=== PATIENT | male | born 1935 | race Caucasian/White ===

== ENCOUNTER 2019-03-11 16:39 | Observation (INO) ==
[2019-03-11 18:28] LABS: BASO# 0.09 X1000 (0.0-0.2); BASO% 1.1 % (0.0-0.8); EOS# 1.26 X1000 (0.0-0.7); EOS% 15.6 % (0.0-10.0); HEMOGLOBIN 10.2 g/dL (14.0-18.0); IMM GRAN# 0.01 X1000 (0.0-0.04); IMM GRAN% 0.1 % (0.0-0.5); LYMPH# 1.45 X1000 (1.2-3.4); MCH 31.7 PG (27-31); MCV 93.2 FL (81-99); MONO# 1.03 X1000 (0.11-0.59); MONO% 12.8 % (1.7-9.3); MPV 8.7 FL (7.4-10.4); NEUT# 4.22 X1000 (1.4-6.5); NEUT% 52.4 % (42.2-75.2); PLT 318 X1000 (130-400); RBC 3.22 XMIL (4.7-6.1); RDW 12.2 % (11.5-14.5); WBC 8.06 X1000 (4.8-10.8)
[2019-03-11 18:49] LABS: INR 0.93; PROTIME 12.9 Seconds (11.0-16.0)
--- NOTE | 2019-03-11 18:51 | Diag Imaging Result Doc PS360 ---
EXAM: CT HEAD W/O CONTRAST HISTORY: AMS,GAIT DISTURB TECHNIQUE: CT head without contrast COMPARISON: 01/02/2019 FINDINGS: No parenchymal hemorrhage. No epidural or subdural hematoma. No subarachnoid hemorrhage. There is atrophy with chronic microvascular ischemic changes. 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 No mass identified on this noncontrasted exam. No hydrocephalus. Prominent mucus in the ethmoid, sphenoid, and left frontal sinuses. IMPRESSION: 1.No hemorrhage 2.Chronic microvascular ischemic changes with small old right infarct 3.Sinusitis This exam was performed using automated exposure control, adjustment of mA or kV according to patient size, and/or use of iterative reconstruction technique. Electronically signed by Jon Sung 03/11/2019 6:49 PM
--- NOTE | 2019-03-11 18:51 | EKG Report ---
Test Performed on : 03/11/2019 6:06:19 PM Test Reason : AMS,GAIT DISTURB Blood Pressure : / mmHG Vent. Rate : 060 BPM Atrial Rate : 060 BPM P-R Int : 200 ms QRS Dur : 116 ms QT Int : 454 ms P-R-T Axes : 015 -12 054 degrees QTc Int : 454 ms Sinus rhythm. with premature atrial complexes. with aberrant conduction. Left ventricular hypertrophy with QRS widening Abnormal ECG When compared with ECG of 18-SEP-2018 10:55, premature ventricular complexes. are no longer present aberrant conduction. is now present ST no longer elevated in Lateral leads Nonspecific T wave abnormality no longer evident in Inferior leads Unconfirmed Result
[2019-03-11 18:56] LABS: UR AMPHETAMINES QUAL NONE DETECTED (NONE DETECT); UR BARBITUATES QUAL NONE DETECTED (NONE DETECT); UR BENZODIAZEPIN QUAL NONE DETECTED (NONE DETECT); UR CANNABINOIDS QUAL NONE DETECTED (NONE DETECT); UR COCAINE QUAL NONE DETECTED (NONE DETECT); UR METHADONE QUAL NONE DETECTED (NONE DETECT); UR METHAMPHETAMINE QUAL NONE DETECTED (NONE DETECT); UR OPIATES QUAL NONE DETECTED (NONE DETECT); UR OXYCODONE QUAL NONE DETECTED (NONE DETECT); UR PCP QUAL NONE DETECTED (NONE DETECT); UR PROPOXYPHENE QUAL NONE DETECTED (NONE DETECT); UR TCA QUAL NONE DETECTED (NONE DETECT)
[2019-03-11 19:00] LABS: CREATININE 1.9 mg/dL (0.7-1.2); POTASSIUM 4.2 mmol/L (3.5-5.1)
[2019-03-11 19:01] LABS: ALBUMIN 4.2 g/dL (3.5-5.0); CALCIUM 9.1 mg/dL (8.8-10.2); TOTAL BILIRUBIN 0.2 mg/dL (0.20-1.00); TOTAL PROTEIN 7.1 g/dL (6.3-8.3)
--- NOTE | 2019-03-11 19:02 | Diag Imaging Result Doc PS360 ---
EXAM: CHEST-PORTABLE HISTORY: AMS,GAIT DISTURB TECHNIQUE: Chest single view COMPARISON: 12/29/2018 FINDINGS: The lungs are well expanded. The heart is mildly prominent. The vessels are not distended. There are no infiltrates. No effusion identified. IMPRESSION: Mild cardiomegaly Electronically signed by Jon Sung 03/11/2019 7:00 PM
[2019-03-11 19:09] LABS: BILIRUBIN URINE NEGATIVE (NEGATIVE); BLOOD URINE 1+ (NEGATIVE); CLARITY CLEAR (CLEAR); COLOR YELLOW; GLUCOSE URINE NEGATIVE (NEGATIVE); KETONE URINE NEGATIVE (NEGATIVE); LEUKOCYTES URINE 1+ (NEGATIVE); NITRITE URINE NEGATIVE (NEGATIVE); PROTEIN URINE NEGATIVE (NEGATIVE); SP GRAVITY URINE 1.005; UROBILINOGEN URINE NORMAL
[2019-03-11 19:18] LABS: URINE SOURCE CATH
[2019-03-11 19:25] LABS: URINE BACTERIA NEGATIVE /HFP; URINE CAST NONE SEEN /LPF; URINE CRYSTAL NONE SEEN /HPF; URINE EPITHELIAL CELLS <10 /HPF (<10); URINE RBC <10 /HPF (<10); URINE WBC <10 /HPF (<10); URINE YEAST NONE SEEN /HPF
[2019-03-11] MEDS ORDERED: NS 1,000 ML IV ONE (21:20)
[2019-03-11 22:04] LABS: BE 3.6 mmoll (-3.0-3.0); BLOOD TYPE ARTERIAL; HCO3-(ACT) 27.7 mmoll (20.0-26.0); METHB 1.1 % (0.0-1.5); O2(CT) 14.5 mL/dL (15.0-23.0); O2HB 95.6 % (95.0-99.0); PCO2(98.6) 39 mmHg (35-45); PO2(98.6) 88 mmHg (60-100); SAMPLE BLOOD; SAO2 98.5 % (95.0-100.0); THB 10.7 g/dL (11.5-17.4); pH(98.6) 7.46 (7.35-7.45)
[2019-03-11 22:06] LABS: ALLEN TEST NO; MODALITY CANNULA
--- NOTE | 2019-03-12 10:01 | HISTORY AND PHYSICAL ---
PRIMARY CARE PHYSICIAN: Dr. Lebron. CHIEF COMPLAINT: Per caregiver at intermediate, patient's blood pressure was elevated, having some new balance issues, and new left-sided facial droop, is nonverbal and on 3 L of O2 at home due to his COPD. HISTORY OF PRESENTING ILLNESS: This is an 83-year-old male who presents to [facility] ER with caregiver from the [facility] intermediate stating that the patient's blood pressure had been elevated, was having some new balance issues, and new left-sided facial droop. The patient is mostly nonverbal, but will respond yes or no to pain. He has a history of COPD and is on 3 L of O2 at home. He has MR. His workup in the emergency room showed a blood pressure of 177/84 on arrival, and was saturating 100% on 3 L of O2. His laboratory data showed a sodium of 130. Urinalysis was negative. Urine drug screen was negative. We did a CT of the head that showed no hemorrhage. 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 PAST MEDICAL HISTORY: Mental retardation, chronic kidney disease stage 3 to 4, hypertension, hyperlipidemia, hypothyroidism, iron deficiency anemia, GERD and systolic heart failure. PAST SURGICAL HISTORY: Unknown. FAMILY HISTORY: Reviewed and noncontributory. SOCIAL HISTORY: Currently lives in a intermediate with a VOA in [place], [place]. Denies any tobacco, alcohol or illicit drug use. ALLERGIES: Tuberculin. HOME MEDICATIONS: We will need to obtain a current list, reconcile, review, and restart as appropriate. Placed an order for nursing to update and confirm her home medications. LABORATORY DATA: Showed a white blood cell count of 8.06, hemoglobin 10.2, hematocrit 30, and platelets 318,000. PT and INR of 12.9 and 0.93. ABG showed a pH of 7.46, pCO2 of 39, PO2 88, bicarb 27.7, and this was on 3 L via nasal cannula. Sodium 130, potassium 4.2, chloride 91, CO2 26, BUN of 25, creatinine 1.9, and glucose 86. Troponin was negative. ProBNP of 5874. Plasma lactate of 0.7. Urinalysis was negative. Urine drug screen showed none detected. Chest x-ray showed mild cardiomegaly. Head CT showed no hemorrhage. Chronic microvascular ischemic changes with a small old right infarct and sinusitis. EKG showed sinus rhythm with PACs with aberrant conduction at 60. REVIEW OF SYSTEMS: Unable to obtain from patient, but according to the caregiver, on arrival, he was having the increased blood pressure, balance issues while standing, and new left-sided facial droop. PHYSICAL EXAMINATION: VITAL SIGNS: On arrival, he had a temperature of 97.6 degrees, pulse 63, respirations 19, blood pressure 177/84 and saturating 100% on 3 L via nasal cannula. GENERAL: This is an 83-year-old male who is lying in the bed unable to answer questions because he is primarily nonverbal. Information has been obtained from previous ER record. HEENT: Normocephalic and atraumatic. Normal ENT inspection. Oropharynx and nares are clear. EYES: Pupils are equal, round, and reactive to light and accommodation. Extraocular movements are intact. NECK: Normal inspection. Normal range of motion. LUNGS: Clear to auscultation bilaterally with equal lung expansion and chest wall movement. HEART: Regular rate and rhythm. No murmurs, rubs, or gallops. ABDOMEN: Soft, nontender, and nondistended. Bowel sounds are present x4 quadrants. MUSCULOSKELETAL: Severe leg weakness. NEUROLOGIC: Limited neuro exam due to patient being uncooperative. Neurological unable to obtain as patient unable to participate in neurological exam. ASSESSMENT: 1. Hyponatremia. 2. Altered mental status. 3. Generalized weakness with inability to stand. 4. Chronic kidney disease stage 3 to 4. 5. Mental retardation. PLAN: He has been admitted to the medical unit doing neuro checks q.4 hours for 24 hours. Telemetry. Placed on a healthy heart diet. Blood cultures x2, and a urine culture are pending. We will continue normal saline at 100 mL an hour. We will recheck a BMP this morning. Again, we will have nursing to update and confirm home medication so that they can be restarted. We will consult physical therapy, and further orders after seen by attending. Dictated by MAMIE Dickinson for Benson Willis MD Addendum: Patient seen and examined by myself. Agree with MAMIE note. It reflects my assessment and plan. Patient is being admitted to hospital for mild hyponatremia and altered mental status. There is no members of intermediate to provide more information. Clinically he looks stable and labs are better, he is awake now but non verbal. If he continues to be like this will discharge him tomorrow. His creatinine is at his historical baseline. cc: MAMIE Dickinson MD Hiteshri S. Bhavsar, MD [facility]
[2019-03-12 11:14] LABS: CALCIUM 8.7 mg/dL (8.8-10.2); CREATININE 1.8 mg/dL (0.7-1.2); POTASSIUM 4.1 mmol/L (3.5-5.1)
[2019-03-13 11:15] VITALS: BP 149/44
--- NOTE | 2019-03-14 21:52 | DISCHARGE SUMMARY ---
ADMISSION DATE: 03/12/2019 DISCHARGE DATE: 03/13/2019 PRIMARY CARE PHYSICIAN: Dr. Lebron. ADMISSION DIAGNOSES: 1. Hyponatremia. 2. Altered mental status. 3. Generalized weakness with inability to stand. 4. Chronic kidney disease stage III to IV. 5. Mental retardation. DISCHARGE DIAGNOSES: 1. Hyponatremia, improved. 2. Altered mental status, improved. 3. Generalized weakness. 4. Chronic kidney disease stage III to IV, improved. 5. Mental retardation. SUMMARY OF FINDINGS: This is an 83-year-old male who presents to the emergency room from the [facility] stating the patient's blood pressure had been elevated and he was having some new balance issues and a new left-sided facial droop. The patient was mostly nonverbal, but would respond yes or no to pain. Uses O2 at 3 L via nasal cannula continuously at home due to his COPD. When he arrived he was noted to have a sodium of 130. His creatinine was 1.9. We did a CT of his head that showed no hemorrhage and chronic microvascular ischemic changes with a small old right infarct. We gave him IV hydration. Physical therapy was consulted and felt that he was a poor rehab candidate, but felt that he would need a walker to walk and would need to improve on his sitting balance and [id number] transfers due to his decreased bed mobility, decreased balance, and reduced strength, but it was felt that he could safely go to rehab facility. DISCHARGE MEDICATIONS: His discharge medications include Tylenol 1000 mg p.o. q. 6 hours p.r.n., aspirin 81 mg p.o. daily, Polysporin ointment topically b.i.d., Cogentin 0.5 mg p.o. at bedtime, Symbicort 160/4.5 mcg inhaler 2 puffs p.o. b.i.d., vitamin D3 at 1000 units p.o. daily, vitamin B12 at 1000 mcg p.o. daily, Colace 100 mg p.o. daily, doxycycline 100 mg p.o. b.i.d., fenofibrate 48 mg p.o. at bedtime, Prozac 20 mg p.o. daily, Lasix 40 mg p.o. p.r.n. and 20 mg p.o. daily, Icar C p.o. daily, Nizoral 2% shampoo topically as directed, lactulose 10 g per 15 mL p.o. daily, Synthroid 75 mcg p.o. daily, loperamide 4 mg p.o. daily p.r.n., Toprol-XL 25 mg p.o. daily, triple antibiotic ointment topically 2 to 4 times daily p.r.n., omeprazole 20 mg p.o. daily, MiraLAX 17 g p.o. daily, Zantac 150 mg p.o. q.a.m., risperidone 0.25 mg p.o. at bedtime, tamsulosin 0.4 mg p.o. daily, Lamisil topically b.i.d., and trazodone 50 mg p.o. at bedtime. FOLLOWUP: He will need to follow up with his primary care physician once he completes his rehab stay and he will return to the [facility] at that time. TIME SPENT: This is a 35-minute discharge. Dictated by MAMIE Dickinson for Benson Willis MD Addendum: Patient seen and examined by myself. Agree with MAMIE note. It reflects my assessment and plan. Patient is being discharged in stable condition back to his [facility]. cc: MAMIE Dickinson MD [facility]
== END 2019-03-13 16:15 | disposition home or self-care (01) ==
LOC: P.ED 16:39 → P.MEDSURG 16:39
PROVIDERS: ATTEND Internal Medicine
CPT/HCPCS: 70450; 71010; 71045; 80048; 80053; 80101; 80104; 80301; 80305; 80307; 80324; 80345; 80346; 80353; 80358; 80361; 80365; 81001; 82805; 82948; 83605; 83735; 83880; 83992; 84484; 85025; 85610; 85730; 87040; 87088; 93005; 94761; 97163; 99285; G0431; G0434; G0477; G0479; G0480; J7030; XXXXX

== ENCOUNTER 2020-01-13 16:38 | Inpatient (IN) ==
[2020-01-13 18:32] LABS: BASO# 0.06 X1000 (0.0-0.2); BASO% 0.4 % (0.0-0.8); EOS# 0.18 X1000 (0.0-0.7); EOS% 1.2 % (0.0-10.0); HEMATOCRIT 28.7 % (42.0-52.0); HEMOGLOBIN 9.2 g/dL (14.0-18.0); IMM GRAN# 0.03 X1000 (0.0-0.04); IMM GRAN% 0.2 % (0.0-0.5); LYMPH# 1.14 X1000 (1.2-3.4); LYMPH% 7.4 % (20.5-51.1); MCH 32.3 PG (27-31); MCHC 32.1 g/dL (33-37); MCV 100.7 FL (81-99); MONO# 1.68 X1000 (0.11-0.59); MONO% 10.9 % (1.7-9.3); MPV 8.9 FL (7.4-10.4); NEUT# 12.28 X1000 (1.4-6.5); NEUT% 79.9 % (42.2-75.2); PLT 321 X1000 (130-400); RBC 2.85 XMIL (4.7-6.1); RDW 12.3 % (11.5-14.5); WBC 15.37 X1000 (4.8-10.8)
[2020-01-13 18:34] LABS: URINE SOURCE CATH
[2020-01-13 18:38] LABS: BILIRUBIN URINE NEGATIVE (NEGATIVE); BLOOD URINE LARGE (NEGATIVE); COLOR ORANGE; GLUCOSE URINE NEGATIVE (NEGATIVE); KETONE URINE NEGATIVE (NEGATIVE); LEUKOCYTES URINE MODERATE (NEGATIVE); NITRITE URINE NEGATIVE (NEGATIVE); PROTEIN URINE 30 mg/dL (NEGATIVE); SP GRAVITY URINE 1.018; TURBIDITY URINE HAZY (CLEAR); UR EPITHELIAL CELLS <10 /HPF (<10); URINE BACTERIA NEGATIVE /HPF; URINE RBC TNTC /HPF (<10); URINE WBC 20-40 /HPF (<10); UROBILINOGEN URINE NORMAL (NORMAL)
[2020-01-13 18:39] LABS: ALBUMIN 4.3 g/dL (3.5-5.0); CALCIUM 9.5 mg/dL (8.8-10.2); CREATININE 3.4 mg/dL (0.7-1.2); POTASSIUM 4.9 mmol/L (3.5-5.1); TOTAL BILIRUBIN 0.2 mg/dL (0.20-1.00); TOTAL PROTEIN 7.4 g/dL (6.3-8.3)
[2020-01-13] MEDS ORDERED: ZOSYN 3.375 GM in NS 50 ML IV ONE (19:16)
[2020-01-13] MEDS ORDERED: TYLENOL PO PRN (19:22)
[2020-01-13] MEDS ORDERED: NS 1,000 ML IV ONE (19:22)
[2020-01-13] MEDS ORDERED: ZOFRAN IV PRN (19:22)
--- NOTE | 2020-01-13 19:22 | PROVIDER DOCUMENTATION ---
This chart was entered by Melba Bee Scribe, acting as scribe for Kaylan Velasco CRNP. HPI-Male Problem <Mt Do - Last Filed: 01/13/20 19:21> - General Source: other (alf staff) Unable to obtain history due to:: other (hx from staff member, pt non verbal) - History of Present Illness-Male Location of Complaint: reports: urethral Severity in ED: reports: moderate Onset/Duration: reports: unsure Timing: reports: intermittent Context/Activities at Onset: reports: other (being cathed) Urinary Symptoms: reports: hematuria Sexual intercourse history: reports: Not Active Associated Symptoms: reports: none Associated Symptoms: denies: fever/chills Similar Symptoms Previously?: Yes Recently seen or treated by another doctor?: Yes <Kaylan Velasco - Last Filed: 01/13/20 19:22> - General Chief Complaint: Male Stated Complaint: BLOOD IN URINE SENT BY MD Time Seen by Provider: 01/13/20 16:56 Allergies/Adverse Reactions: Patient Allergies Allergy/AdvReac Type Severity Reaction Status Date / Time tuberculin, purified protein Allergy Unknown Verified 01/13/20 17:13 deriva Home Medications: Home Medication List Medication Instructions Recorded Confirmed Last Taken Type Fenofibrate [Tricor] 48 mg PO QHS 02/11/13 01/13/20 06/19/18 19:00 History Ketoconazole 2% Shampoo [Nizoral 1 applicatn TOP DIRECTED 02/11/13 01/13/20 Unknown History 2% Shampoo] Trazodone [Desyrel] 50 mg PO QHS 02/11/13 01/13/20 06/19/18 19:00 History Acetaminophen 1,000 mg PO Q6H PRN MDD 8 tabs in 05/27/16 01/13/20 Unknown History 24 hours over 2 days Benztropine [Cogentin] 0.5 mg PO QHS 05/27/16 01/13/20 06/19/18 19:00 History Docusate Sodium [Colace] 100 mg PO DAILY 05/27/16 01/13/20 06/13/18 07:00 History Levothyroxine [Synthroid] 75 microgm PO DAILY 05/27/16 01/13/20 06/20/18 05:45 History Loperamide [Imodium] 4 mg PO DIRECTED PRN MDD 8 05/27/16 01/13/20 Unknown History tablets in 24 hours Metoprolol Succinate E.r. [Toprol 25 mg PO DAILY 05/27/16 01/13/20 06/20/18 05:45 History Xl] Neomycin Allison/Bacitrac Zn/Poly 28 gm TP 2-4XDAY PRN PRN 05/27/16 01/13/20 Unknown History [Triple Antibiotic Ointment] Risperidone 0.25 mg PO QHS 05/27/16 01/13/20 06/19/18 19:00 History Furosemide [Lasix] 20 mg PO DAILY 09/18/18 01/13/20 Unknown History Terbinafine HCl 1% Cream [Lamisil 1 applicatn TOP BID 09/18/18 01/13/20 Unknown History 1% Cream] Aspirin EC 81 mg PO DAILY 03/12/19 01/13/20 Unknown History Fluoxetine HCl [Prozac] 20 mg PO DAILY 03/13/19 01/13/20 Unknown History Iron Carbonyl/Ascorbic Acid 1 ea PO DAILY 03/13/19 01/13/20 Unknown History [Icar-C] Lactulose 10 gm PO DAILY 03/13/19 01/13/20 Unknown History Albuterol [Albuterol Neb] 1 vial INH DAILY 01/13/20 01/13/20 Unknown History Arformoterol Neb [Brovana Neb] 1 vial INH BID 01/13/20 01/13/20 Unknown History Calcium Carbonate [Oyster Shell 2 tab PO DAILY 01/13/20 01/13/20 Unknown History Calcium] Cholecalciferol (Vit D3) [Vitamin 1 tab PO DAILY 01/13/20 01/13/20 Unknown History D3] Cyanocobalamin (Vitamin B-12) 1,000 mcg PO DAILY 01/13/20 01/13/20 Unknown History [Vitamin B12] Loratadine [Claritin] 1 tab PO DAILY PRN 01/13/20 01/13/20 Unknown History Melatonin 1 tab PO QHS 01/13/20 01/13/20 Unknown History Ranitidine HCl [Zantac] 1 tab PO DAILY 01/13/20 01/13/20 Unknown History Sulfamethoxazole/Trimethoprim 1 ea PO BID 01/13/20 01/13/20 01/13/20 History [Bactrim Ds Tablet] Tamsulosin [Flomax] 1 cap PO DAILY 01/13/20 01/13/20 Unknown History Triamcinolone 0.025% Cr [Kenalog 1 applicatn TOP DAILY PRN 01/13/20 01/13/20 Unknown History 0.025% Cream] - History of Present Illness-Male Nature of Presenting Problem: pt is a 84 yr old male presenting from alf with staff member at bedside. staff reports pt has hematuria today after being cathed, pt gets cathed 2x daily due to prostate problems. pt is followed by Dr Nuñez, pt was seen 8 days ago in clinic for hematuria and dx as UTI, has been on ABX since then. staff reports hematuria had cleared but returned today. (Kaylan Velasco) Review of Systems - Adult - REVIEW OF SYSTEMS - ADULT ROS:: limited per condition (review from staff member) Constitutional: denies: chills, fever Eyes: reports: no symptoms reported Ears, Nose, Mouth & Throat: reports: no symptoms reported Cardiovascular: reports: no symptoms reported Respiratory: reports: no symptoms reported Gastrointestinal: reports: no symptoms reported Genitourinary: reports: frequent UTI's, hematuria Musculoskeletal: reports: no symptoms reported Integumentary: reports: no symptoms reported Neurological: reports: no symptoms reported Psychiatric: reports: no symptoms reported Endocrine: reports: no symptoms reported Hematologic/Lymphatic: reports: no symptoms reported Allergic/Immunologic: reports: no symptoms reported All Other Systems: Reviewed and Negative <Kaylan Velasco - Last Filed: 01/13/20 19:22> Past History - Adult - PAST MEDICAL HISTORY-ADULT Review of Records: reports: Old Records Reviewed, Nursing Assessment Review, Medications Reviewed, Social history reviewed & non-contributory. Major Childhood Illnesses: reports: denies history Cardiovascular: reports: CAD, CHF, HTN, hyperlipidemia Respiratory: reports: COPD, sleep apnea Gastrointestinal: reports: GERD Obstetrical/Gynecological: reports: denies history Genitourinary: reports: kidney disease (CKD) Musculoskeletal: reports: denies history Neurological: reports: other (MR) Psychiatric: reports: psychiatric problems, other (OCD) Endocrine/Immune: reports: thyroid disorder (hypo) Other Conditions: reports: denies history, other (axis 1 diagnosis) - PRIOR SURGERIES/PROCEDURES Surgical/Procedure History: reports: none - IMMUNIZATION STATUS Childhood Immunizations: UTD Flu Vaccine: See Nurse Assessment - FAMILY HISTORY Family History: reviewed, not pertinent - SOCIAL HISTORY Living Situation: family <Kaylan Velasco - Last Filed: 01/13/20 19:22> Physical Exam-General - PHYSICAL EXAM-ADULT Initial Vital Signs Reviewed: Yes - CONSTITUTIONAL General Appearance: appears well, alert, no apparent distress - EYES Eyes: PERRL/EOMI - HEAD, EARS, NOSE, MOUTH & THROAT HENMT: normocephalic/atraumatic, moist mucous membranes - NECK Neck: non-tender, full range of motion, supple, normal inspection - RESPIRATORY Respiratory: lungs clear, normal breath sounds - CARDIOVASCULAR Cardiovascular: normal peripheral pulses, regular rate, rhythm - GASTROINTESTINAL (ABDOMEN) Abdominal Exam: normal bowel sounds, soft, tenderness (suprapubic tenderness) - LYMPHATIC Lymphatic: no adenopathy - MUSCULOSKELETAL Back Exam: normal inspection, no CVA tenderness, no vertebral tenderness Extremity: normal range of motion, non-tender, normal inspection - SKIN Integumentary: normal color, normal turgor, warm/dry - NEUROLOGIC Neurologic: grossly normal, no motor/sensory deficits - PSYCHIATRIC Psych/Mental Status: other (non verbal) <Kaylan Velasco - Last Filed: 01/13/20 19:22> Progress - PLAN OF CARE/RESULTS Result Diagrams: 01/13/20 18:01 01/13/20 18:01 <Mt Do - Last Filed: 01/13/20 19:21> - PLAN OF CARE/RESULTS Result Diagrams: 01/13/20 18:01 01/13/20 18:01 - CONSULTS/PCP/HOSPITALIST Notification #1 *Consult/PCP/Hospitalist*: Dr. Ledbetter Time Discussed: 19:21 Consult Disposition: Admit <Kaylan Velasco - Last Filed: 01/13/20 19:22> - PLAN OF CARE/RESULTS Progress/Plan/Lab Results: Vital Signs - 8 hr 01/13/20 16:42 Temperature 97.9 F Pulse Rate 71 Respiratory Rate 18 Blood Pressure 166/68 O2 Sat by Pulse Oximetry 100 Laboratory Results - last 24 hr 01/13/20 01/13/20 01/13/20 18:01 18:01 18:23 WBC 15.37 H RBC 2.85 L Hgb 9.2 L Hct 28.7 L MCV 100.7 H MCH 32.3 H MCHC 32.1 L RDW Std Deviation 12.3 Plt Count 321 MPV 8.9 Immature Gran % (Auto) 0.2 Neut % (Auto) 79.9 H Lymph % (Auto) 7.4 L Blount % (Auto) 10.9 H Eos % (Auto) 1.2 Baso % (Auto) 0.4 Immature Gran # (Auto) 0.03 Neut # (Auto) 12.28 H Lymph # (Auto) 1.14 L Blount # (Auto) 1.68 H Eos # (Auto) 0.18 Baso # (Auto) 0.06 Sodium 133 L Potassium 4.9 Chloride 96 L Carbon Dioxide 22 L Anion Gap 15 BUN 49 H Creatinine 3.4 H Estimated GFR/1.73 m2 17 BUN/Creatinine Ratio 14 Glucose 114 H Calculated Osmolality 280 Calcium 9.5 Total Bilirubin 0.20 AST 20 ALT 11 Alkaline Phosphatase 36 Total Protein 7.4 Albumin 4.3 Globulin 3.0 Albumin/Globulin Ratio 1.0 Urine Source CATH Urine Color ORANGE Urine Turbidity HAZY Urine pH 6.0 Ur Specific [place] 1.018 Urine Protein 30 A Ur Glucose (Stick) NEGATIVE Ur Ketones (Stick) NEGATIVE Urine Blood LARGE A Urine Nitrite NEGATIVE Urine Bilirubin NEGATIVE Urobilinogen Dipstick NORMAL Urine Leukocytes MODERATE A Urine WBC (Auto) 20-40 A Urine RBC (Auto) TNTC A U Epithel Cells (Auto) <10 Urine Bacteria (Auto) NEGATIVE Orders Category Date Time Status BLOOD CULTURE [BLDCUL] Stat Lab 01/13/20 19:16 Uncollected CBC WITH DIFF [HEME] Stat Lab 01/13/20 18:01 Completed CMP [COMPREHENSIVE METABOLIC PANEL] [CHEM] Stat Lab 01/13/20 18:01 Completed LACTATE, PLASMA [CHEM] Stat Lab 01/13/20 19:17 Uncollected URINALYSIS W/POSS RFLX CULT [URINALYSIS] Stat Lab 01/13/20 18:23 Completed URINE CULTURE [RM] Routine Lab 01/13/20 19:05 Ordered Piperacillin/Tazobactam [Zosyn] 3.375 gm Med 01/13/20 19:16 Active 0.9% Sodium Chloride Inj [Ns] 50 ml IV NOW Departure - Departure Time of Disposition Decision: 19:21 Certified Medical Emergency: Emergent - Critical Care Note This patient required my direct & personal management of CC.: No <Mt Do Brian - Last Filed: 01/13/20 19:21> - Departure Date of Disposition Decision: 01/13/20 Certified Medical Emergency: Emergent <Kaylan Velasco - Last Filed: 01/13/20 19:22> - Departure DIAGNOSIS: ARGELIA (acute kidney injury), Failure of outpatient treatment UTI (urinary tract infection) Qualifiers: Urinary tract infection type: catheter-associated UTI Indwelling urinary catheter type: unspecified Encounter type: initial encounter Qualified Code(s): T83.511A - Infection and inflammatory reaction due to indwelling urethral catheter, initial encounter; N39.0 - Urinary tract infection, site not specified Disposition: ADMITTED INPATIENT 09 Condition: Fair Referrals and Follow-Ups: Raymundo Lebron MD [Primary Care Provider] - Attestation - Physician/ JOSE Attestation Patient care was provided by Advanced Practice Provider:: Yes Advanced Practice Provider:: Kaylan Velasco Advanced Practice Provider documentation review:: The Mid-level provider documentation, treatment plan and medical decision making was reviewed by the physician who agrees with all treatment and medical decision making by the MLP. The physician spent face to face time with patient:: No Advanced Practice Provider documentation review:: Supervising physician onsite and consulted in the evaluation and care of this patient. The physician did not have a face to face encounter with the patient. <Kaylan Velasco - Last Filed: 01/13/20 19:22> This chart was documented by the indicated scribe, (Melba Bee Scribe) and accurately reflects the services I performed and decisions made by Rod de leon Summer C., CRNP, as attested by the provider's signature.
[2020-01-14] MEDS: ZOSYN 3.375 GM in NS 50 ML IV SCH ×2 (02:59→08:16)
[2020-01-14] MEDS ORDERED: CALMOSEPTINE OINTMENT TOP PRN (06:43)
[2020-01-14] MEDS ORDERED: IMODIUM PO PRN (12:50)
[2020-01-14] MEDS ORDERED: TYLENOL PO PRN (12:50)
[2020-01-14] MEDS ORDERED: CLARITIN PO PRN (12:50)
[2020-01-14] MEDS ORDERED: NS 1,000 ML IV ONE (12:50)
[2020-01-14 12:58] LABS: CREATININE 3.2 mg/dL (0.7-1.2); POTASSIUM 4.7 mmol/L (3.5-5.1)
--- NOTE | 2020-01-14 13:19 | HISTORY AND PHYSICAL ---
CHIEF COMPLAINT: Hematuria. HISTORY OF PRESENT ILLNESS: This is an 84-year-old, long-term patient who has a history of prostate issues, urinary retention. He is self-catheterized. He was having hematuria and was treated for a UTI about 8 days ago. Has been on antibiotics, although it is not clear what, and then hematuria which had initially resolved, has returned. He does have white blood cells and red blood cells and low squamous cells. In any case, he was admitted for treatment. His workup in the ER showed an elevated white count too. There was concern over UTI. So far, cultures have been negative. He had a urine culture on the but I do not know if he had one done as an outpatient with Dr. Stanley. Presumably, that would have been done through the hospital. He has had Proteus mirabilis before, which has not been very resistant. Enterobacter, also not very resistant, Streptococcus agalactiae, all fairly sensitive. He is currently on Zosyn. He has had urinary retention this morning and a catheter was placed. He was retaining about 680 this morning and had a Wyatt catheter placed since then. In any case, the patient was admitted for a complicated UTI failing outpatient therapy. PAST MEDICAL HISTORY: All this is gleaned from the chart. Patient is in a long-term and there is nobody present. 1. Intellectual impairment. 2. Chronic renal failure stage 3. 3. Hypertension. 4. Hyperlipidemia. 5. Hyperthyroidism. 6. Iron deficiency anemia. 7. GERD. 8. History of CHF. PAST SURGICAL HISTORY: Denies. FAMILY HISTORY: Nothing per chart. ALLERGIES: Tuberculin, PPD. SOCIAL HISTORY: He is a long-term patient. No tobacco or alcohol. MEDICATIONS: Medication list is large. Cogentin 0.5 at bedtime, trazodone 50 at bedtime, melatonin 1 at bedtime, risperidone 0.25 at bedtime, Tylenol, albuterol, aspirin 81 daily, Bactrim which I think is probably what he has been taking, Brovana b.i.d., Claritin 10 daily, Colace 100 daily, Flomax 0.4 daily, Icar C daily, Imodium, Kenalog, lactulose, Lamisil, Lasix, ketoconazole, oyster shell 500 daily, Prozac 20 daily, Synthroid 75 daily, Toprol-XL 25 daily, vitamin B12 at 1000 mcg daily, vitamin D3 at 1000 units daily, Zantac 150 daily. REVIEW OF SYSTEMS: Otherwise negative x10 point review of systems. PHYSICAL EXAMINATION: VITAL SIGNS: Blood pressure is 121/49, heart rate 69, respiratory rate 18, temperature 98.5 degrees. CARDIOVASCULAR: Regular rate and rhythm. PULMONARY: Bilateral breath sounds clear to auscultation. GI: Soft, nontender, nondistended. Bowel sounds were positive. LABORATORY DATA: White count is 15, hemoglobin and hematocrit 9 and 28, platelets 321,000. Creatinine is up to 3.4 and he is usually in the 1.8 to 2 range so this is definitely a change. PROBLEM LIST: 1. Complicated urinary tract infection, presumably. Urine culture is negative. He is on Zosyn. I think that is reasonable to continue that, pending cultures, which we may not get accurate cultures or positive culture since he has been on antibiotics. He has got hematuria so I am going to go ahead and CT his kidneys, bladder. I doubt he has a kidney stone but it is possible and just to better evaluate for the hematuria. Presumably, this is just hemorrhagic cystitis. Hematuria I think has resolved though. His urine is dark but not any issues there. 2. Acute kidney injury. We will go ahead and give him some fluid and see how he does. Check urine electrolytes. CT scan will image his kidneys. He does have evidence of urinary retention. We will hold any nephrotoxic drugs. He does not appear to be volume overloaded but we will continue to follow. 3. Chronic obstructive pulmonary disease, appears to be stable. Resume his current medications. 4. Severe MR. We will resume his Cogentin and several of his other medications. 5. Hypothyroidism. We will continue Synthroid and check a TSH level. DISPOSITION: Pending clinical status, culture results. We will continue to follow closely. cc: Foster Salamanca MD
--- NOTE | 2020-01-14 14:09 | Diag Imaging Result Doc PS360 ---
EXAM: CT RENAL STONE SEARCH HISTORY: violet TECHNIQUE: CT abdomen and pelvis without oral or intravenous contrast COMPARISON: 01/16/2019 FINDINGS: The heart remains mildly enlarged. There are several calcified stones within the gallbladder. No pericholecystic inflammation. No focal hepatic abnormality identified on this noncontrasted exam. No splenomegaly. No inflammation about the pancreas. Normal adrenal glands. No renal stones. No hydronephrosis. Severe atherosclerosis. No aortic aneurysm. There is a large amount of stool throughout the colon. Very prominent stool within the rectum. Normal appendix. No abscess. No ascites. There is a Wyatt catheter within the urinary bladder. Old L2 compression fracture. IMPRESSION: 1.Fecal impaction with severe constipation 2.Severe atherosclerosis 3.Cholelithiasis This exam was performed using automated exposure control, adjustment of mA or kV according to patient size, and/or use of iterative reconstruction technique. Electronically signed by Jon Sung 01/14/2020 2:07 PM
[2020-01-14] MEDS: ZOSYN 2.25 GM in NS 50 ML IV SCH (16:51)
[2020-01-14] MEDS: PROZAC PO SCH (16:52)
[2020-01-14] MEDS: TOPROL XL PO SCH ×2 (16:52→17:05)
[2020-01-14] MEDS: SYNTHROID PO SCH (16:52)
[2020-01-14] MEDS: FLOMAX PO SCH (16:53)
[2020-01-14] MEDS: BROVANA NEB INH SCH (19:27)
[2020-01-14] MEDS: MELATONIN PO SCH (21:24)
[2020-01-14] MEDS: COGENTIN PO SCH (21:24)
[2020-01-14] MEDS: RISPERDAL PO SCH (21:24)
[2020-01-14] MEDS: TRICOR PO SCH (21:24)
[2020-01-14] MEDS: DESYREL PO SCH (21:24)
[2020-01-15] MEDS: ZOSYN 2.25 GM in NS 50 ML IV SCH ×3 (04:00→21:34)
[2020-01-15] MEDS: SYNTHROID PO SCH (06:01)
[2020-01-15 06:23] LABS: CALCIUM 8.4 mg/dL (8.8-10.2); CREATININE 2.9 mg/dL (0.7-1.2); POTASSIUM 4.1 mmol/L (3.5-5.1)
[2020-01-15 06:28] LABS: BASO# 0.06 X1000 (0.0-0.2); BASO% 0.8 % (0.0-0.8); EOS# 0.44 X1000 (0.0-0.7); EOS% 5.8 % (0.0-10.0); HEMATOCRIT 26.8 % (42.0-52.0); HEMOGLOBIN 8.3 g/dL (14.0-18.0); IMM GRAN# 0.02 X1000 (0.0-0.04); IMM GRAN% 0.3 % (0.0-0.5); MCV 103.5 FL (81-99); MONO# 1.06 X1000 (0.11-0.59); MONO% 13.9 % (1.7-9.3); MPV 9.3 FL (7.4-10.4); NEUT# 4.45 X1000 (1.4-6.5); NEUT% 58.2 % (42.2-75.2); PLT 272 X1000 (130-400); RBC 2.59 XMIL (4.7-6.1); RDW 12.4 % (11.5-14.5); WBC 7.63 X1000 (4.8-10.8)
[2020-01-15] MEDS: BROVANA NEB INH SCH ×2 (08:25→19:56)
[2020-01-15] MEDS: ALBUTEROL NEB INH SCH (08:25)
[2020-01-15] MEDS ORDERED: PEPCID PO SCH (09:00)
[2020-01-15] MEDS ORDERED: LACTULOSE PO SCH (09:00)
[2020-01-15] MEDS: FLOMAX PO SCH (09:22)
[2020-01-15] MEDS: CALTRATE 600 PO SCH (09:22)
[2020-01-15] MEDS: VITAMIN D PO SCH (09:22)
[2020-01-15] MEDS: VITAMIN B-12 PO SCH (09:22)
[2020-01-15] MEDS: ICAR-C PO SCH (09:22)
[2020-01-15] MEDS: COLACE PO SCH (09:22)
[2020-01-15] MEDS: PROZAC PO SCH (09:22)
[2020-01-15] MEDS: TOPROL XL PO SCH (09:22)
[2020-01-15] MEDS: FLEET MINERAL OIL ENEMA PR ONE ×2 (10:41→10:56)
--- NOTE | 2020-01-15 10:48 | PROGRESS NOTE ---
DATE: 01/15/2020 ADDENDUM TO ASSESSMENT AND PLAN: Rectal impaction with severe constipation. He has been placed on lactulose, Colace, MiraLAX, and he will get a mineral oil enema. He is currently starting to have bowel movements after being hydrated as well. Dictated by MAMIE Jean for Foster Salamanca MD cc: MAMIE Jean MD
[2020-01-15 10:54] LABS: IRON SATURATION 15 %; TIBC 172 ug/dL; TOTAL IRON 26 ug/dL (53-167); UNBOUND IRON 146 ug/dL (112-346)
[2020-01-15] MEDS: LACTULOSE PO SCH ×2 (10:56→21:34)
--- NOTE | 2020-01-15 10:56 | PROGRESS NOTE ---
DATE: 01/15/2020 SUBJECTIVE: Mr. Issac Barraza is an 84-year-old male who is in no acute distress. He is currently getting his bath. He has no complaints. Denies abdominal pain. Denies fever. Tech at the bedside states he had a bowel movement. However, it was small, and it was dark green in color. OBJECTIVE: Vital signs: Temperature 97.7 degrees, heart rate 69, respiratory rate 18, blood pressure 125/60, and O2 saturation 100% on 2 L nasal cannula. General: Mr. Issac Edge is an 84-year-old male. He is in no acute distress. He is able to answer questions appropriately. HEENT: Atraumatic and normocephalic. Pupils equal, round, and reactive to light. Extraocular movements intact. His sclera is pale. Cardiovascular: S1, S2. Regular rate and rhythm. No rubs, gallops, or murmurs. There is no lower extremity edema. +2 dorsalis and radial pulses. Negative JVD. Pulmonary: Clear to auscultation bilateral breath sounds. No accessory muscle use or work of breathing noted GI: Abdomen soft, round, nontender, and nondistended. Positive bowel sounds x4. Extremities: Decreased range of motion. Neurologic: Oriented to name, and pleasant. Skin: Warm, dry, and intact but pale. LABORATORY DATA: White blood cells 7000, hemoglobin 8, hematocrit 26, and platelet count 272,000. Sodium 138, potassium 4.1, BUN 44, creatinine 2.9, glucose 96, and calcium 8.4. Cultures: Blood cultures negative so far. Urine culture negative so far. IMAGING: Renal CT shows fecal impaction with severe constipation. Severe atherosclerosis and cholelithiasis. Old L2 compression fracture. ASSESSMENT AND PLAN: 1. Failed outpatient treatment of urinary tract infection. However, cultures were negative. He is still on Zosyn. He has been afebrile. White blood cell count is back to normal. Currently, he has an indwelling urinary catheter. However, at the half-way, he self cath's. 2. Acute kidney injury on CKD stage 3. He received IV fluid hydration and that has normalized. He has got clear yellow urine output through the Wyatt catheter. 3. Iron deficiency anemia with a drop in his hemoglobin so we are going to do some anemia, labs, and check the stool for blood. We will continue him on his Icar C. Vitals are stable. 4. COPD, stable. He is currently on 2 L of oxygen. 5. Severe mental retardation, or intellectual disability. Continued on Cogentin. 6. Hypothyroidism. Continue Synthroid. 7. Deep venous thrombosis prophylaxis. SCD's. Dictated by MAMIE Jean for Foster Salamanca MD cc: MAMIE Jean MD
[2020-01-15 14:33] LABS: FERRITIN 388 ng/mL (30-400)
[2020-01-15 16:52] LABS: OCCULT BLOOD 1 NEGATIVE (NEGATIVE)
[2020-01-15] MEDS: DESYREL PO SCH (21:32)
[2020-01-15] MEDS: TRICOR PO SCH (21:33)
[2020-01-15] MEDS: MELATONIN PO SCH (21:33)
[2020-01-15] MEDS: COGENTIN PO SCH (21:33)
[2020-01-15] MEDS: RISPERDAL PO SCH (21:35)
[2020-01-15] MEDS: MIRALAX PO SCH (21:35)
[2020-01-16] MEDS: ZOSYN 2.25 GM in NS 50 ML IV SCH ×3 (04:57→20:46)
[2020-01-16 06:01] LABS: BASO# 0.06 X1000 (0.0-0.2); BASO% 0.7 % (0.0-0.8); EOS# 0.52 X1000 (0.0-0.7); HEMATOCRIT 25.8 % (42.0-52.0); HEMOGLOBIN 8.1 g/dL (14.0-18.0); IMM GRAN# 0.01 X1000 (0.0-0.04); IMM GRAN% 0.1 % (0.0-0.5); LYMPH# 1.92 X1000 (1.2-3.4); LYMPH% 22.1 % (20.5-51.1); MCH 31.9 PG (27-31); MCHC 31.4 g/dL (33-37); MCV 101.6 FL (81-99); MONO# 1.33 X1000 (0.11-0.59); MONO% 15.3 % (1.7-9.3); NEUT# 4.86 X1000 (1.4-6.5); NEUT% 55.8 % (42.2-75.2); PLT 283 X1000 (130-400); RBC 2.54 XMIL (4.7-6.1); RDW 12.4 % (11.5-14.5)
[2020-01-16 06:05] LABS: CALCIUM 8.7 mg/dL (8.8-10.2); CREATININE 2.4 mg/dL (0.7-1.2); POTASSIUM 4.1 mmol/L (3.5-5.1)
[2020-01-16] MEDS: SYNTHROID PO SCH (06:27)
[2020-01-16] MEDS: PRILOSEC PO SCH (06:27)
--- NOTE | 2020-01-16 07:08 | Diag Imaging Result Doc PS360 ---
EXAM: ABDOMEN FLAT/UPRIGHT HISTORY: sbo TECHNIQUE: Two views COMPARISON: 12/15/2010 FINDINGS: There is stool throughout the colon. No bowel obstruction. No organomegaly. No free air beneath the diaphragm. Prominent atherosclerosis. IMPRESSION: Moderate constipation Electronically signed by Jon Sung 01/16/2020 7:06 AM
[2020-01-16] MEDS: BROVANA NEB INH SCH ×2 (07:31→20:08)
[2020-01-16] MEDS: ALBUTEROL NEB INH SCH (07:31)
[2020-01-16] MEDS: MIRALAX PO SCH ×2 (08:21→20:45)
[2020-01-16] MEDS: VITAMIN D PO SCH (08:22)
[2020-01-16] MEDS: PROZAC PO SCH (08:22)
[2020-01-16] MEDS: TOPROL XL PO SCH (08:22)
[2020-01-16] MEDS: ICAR-C PO SCH (08:22)
[2020-01-16] MEDS: VITAMIN B-12 PO SCH (08:22)
[2020-01-16] MEDS: CALTRATE 600 PO SCH (08:22)
[2020-01-16] MEDS: FLOMAX PO SCH (08:22)
[2020-01-16] MEDS: COLACE PO SCH (08:22)
[2020-01-16] MEDS: LACTULOSE PO SCH ×2 (08:24→20:46)
[2020-01-16] MEDS ORDERED: LACTULOSE PO ONE (16:35)
--- NOTE | 2020-01-16 16:53 | PROGRESS NOTE ---
DATE: 01/16/2020 SUBJECTIVE: Patient has no complaints. He is sitting up in bed. He has been doing that pretty much since he has been here. Urine is clear in catheter bag. OBJECTIVE: Blood pressure 115/55, heart rate is 65, respiratory rate 20, temperature 98.5 degrees 100% on 2.5 L.Cardiovascular: Regular rate and rhythm. Pulmonary: Bilateral breath sounds clear to auscultation. GI: Soft, nontender, nondistended. Bowel sounds are positive. White count 8, hemoglobin 8 and hematocrit 25, platelets 283,000. Creatinine is at 2.4, BUN of 36 which is kind of close to baseline for him. Hemoccult was negative. Urine and blood cultures are still no growth today but he was on antibiotics previously. He is still somewhat constipated but no longer fecally impacted. IMPRESSION: 1. Complicated urinary tract infection. No culture results. He is on Zosyn. We will probably transition him to Augmentin. 2. Chronic renal failure stage 3. He is still at stage IIIB, actually may be around stage IV now because he is below 30 and we will continue to follow. DISPOSITION: So, in any case, patient is stabilized and plan is to likely discharge him. I need to discuss with about he used to be a self-cath patient. I think he has been seen by Urology before. The case was discussed with Dr. Stanley. I guess we will just arrange follow-up. Looks like he has seen Dr. Flores in the past for an elevated PSA, so we will make sure he got follow-up there, but plan to discharge back to correction tomorrow. cc: Foster Salamanca MD
[2020-01-16] MEDS: COGENTIN PO SCH (20:45)
[2020-01-16] MEDS: RISPERDAL PO SCH (20:45)
[2020-01-16] MEDS: MELATONIN PO SCH (20:45)
[2020-01-16] MEDS: TRICOR PO SCH (20:45)
[2020-01-16] MEDS: DESYREL PO SCH (20:45)
[2020-01-17] MEDS: ZOSYN 2.25 GM in NS 50 ML IV SCH ×2 (04:21→11:45)
[2020-01-17 05:47] LABS: CALCIUM 8.4 mg/dL (8.8-10.2); POTASSIUM 4.4 mmol/L (3.5-5.1)
[2020-01-17] MEDS: SYNTHROID PO SCH (06:21)
[2020-01-17] MEDS: PRILOSEC PO SCH (06:21)
[2020-01-17] MEDS: ALBUTEROL NEB INH SCH (07:59)
[2020-01-17] MEDS: BROVANA NEB INH SCH (07:59)
[2020-01-17] MEDS: LACTULOSE PO SCH (11:39)
[2020-01-17] MEDS: FLOMAX PO SCH (11:40)
[2020-01-17] MEDS: CALTRATE 600 PO SCH (11:40)
[2020-01-17] MEDS: ICAR-C PO SCH (11:40)
[2020-01-17] MEDS: VITAMIN B-12 PO SCH (11:40)
[2020-01-17] MEDS: COLACE PO SCH (11:40)
[2020-01-17] MEDS: TOPROL XL PO SCH (11:40)
[2020-01-17] MEDS: VITAMIN D PO SCH (11:40)
[2020-01-17] MEDS: PROZAC PO SCH (11:40)
[2020-01-17] MEDS: MIRALAX PO SCH (11:41)
[2020-01-17 13:31] VITALS: BP 113/85
--- NOTE | 2020-01-17 13:41 | DISCHARGE SUMMARY ---
ADMISSION DATE: 01/13/2020 DISCHARGE DATE: 01/17/2020 DISCHARGE DIAGNOSES: 1. Urinary tract infection. 2. Urinary retention with chronic urinary retention. 3. Chronic renal failure around stage 3B. 4. Intellectual impairment. 5. Hypothyroidism. Briefly this is an 84-year-old male who admitted on the for hematuria. He had been on antibiotics previously I think and he does intermittent catheterizations. His CT scan showed a fecal impaction, atherosclerosis, cholelithiasis, but there was nothing else, nothing wrong with the kidneys in any case. His urine culture did not grow anything, but his urinalysis showed 20 to 40 white blood cells, too numerous to count red blood cells, no nitrite. His initial white count was 15. His initial creatinine was 3.4, and his baseline creatinine is usually around 2. He was given hydration and improved. He was placed on Zosyn and improved. In any case plan will be to go home on antibiotics. I am going to leave the Wyatt in until he can follow up with Urology that was unavailable because he is at [facility]. In any case, plan will be to discharge here soon. We will do 500 q.12 for a week. ADDITIONAL DISCHARGE MEDICATIONS: Are as follows 1. Cogentin 0.5 at bedtime. 2. Trazodone 50 at bedtime. 3. Melatonin 3 at bedtime. 4. Risperdal 0.25 at bedtime. 5. Tricor 48 at bedtime. 6. Albuterol nebs daily. 7. Aspirin 81 daily. 8. Bactrim which I think we are going to stop that, I do not think that was working. 9. Brovana b.i.d. 10. Claritin 10 daily. 11. Colace 100 daily. 12. Flomax 0.4 daily. 13. Icar C daily. 14. Imodium. 15. Kenalog. 16. Lactulose. 17. Terbinafine. 18. Lasix 20 daily. 19. Ketoconazole. 20. Oyster shell 1 g daily. 21. Prozac 20 daily. 22. Synthroid 75 daily, which I think we may need to adjust up 25. 23. Toprol-XL 25 daily. 24. B12 1000 mcg daily. 25. Vitamin D3 1000 units daily. 26. Zantac 150 daily. 27. Augmentin 500 q.12. I think to add to his medical problems, we did check a TSH on him. It looks like it is okay, so we did not adjust that. His acute kidney injury, he did have a creatinine of 3.4, but it is 2 at the time of discharge. In any case, he also had a fecal impaction, another problem. He is on at home, he is already on Flomax. He is on Imodium which probably need to stop that. So he needs to be on MiraLAX probably twice a day 17 g. We are going to add that and have p.r.n. lactulose if needed. Discharge condition is stable. We will continue to follow closely. cc: Foster Salamanca MD
== END 2020-01-17 14:10 | disposition home or self-care (01) | DRG 690 ==
LOC: P.ED 16:38 → SUATTDRO 19:53 → P.MEDSURG 19:53
PROVIDERS: ATTEND Internal Medicine

== ENCOUNTER 2020-01-21 11:12 | Day surgery (SDC) ==
[~2020-01-21 11:12] MED LIST: DIPRIVAN 1% ONE; ROBINUL ONE; XYLOCAINE-MPF 2% ONE
[2020-01-21] MEDS ORDERED: PEPCID ONE (11:36)
[2020-01-21] MEDS ORDERED: REGLAN ONE (11:36)
[2020-01-21] MEDS ORDERED: KEFZOL 1 GM/D5W 2 GM/100 ML IVPB ONE (11:37)
[2020-01-21] MEDS ORDERED: LR 1,000 ML ONE (11:37)
--- NOTE | 2020-01-21 11:38 | EKG Report ---
Test Performed on : 01/21/2020 11:27:29 AM Test Reason : preop Blood Pressure : / mmHG Vent. Rate : 061 BPM Atrial Rate : 061 BPM P-R Int : 202 ms QRS Dur : 102 ms QT Int : 422 ms P-R-T Axes : 043 -20 033 degrees QTc Int : 424 ms Normal sinus rhythm. Normal ECG When compared with ECG of 11-MAR-2019 18:06, aberrant conduction. is no longer present Confirmed by Dominick HUITRON, Alden Mcknight ([id number]) on 01/22/2020 9:24:55 AM
[2020-01-21 12:00] LABS: HEMATOCRIT 25.6 % (42.0-52.0); HEMOGLOBIN 7.9 g/dL (14.0-18.0); MCH 31.6 PG (27-31); MCHC 30.9 g/dL (33-37); MCV 102.4 FL (81-99); MPV 8.7 FL (7.4-10.4); RBC 2.5 XMIL (4.7-6.1); RDW 12.2 % (11.5-14.5); WBC 8.35 X1000 (4.8-10.8)
[2020-01-21 12:07] LABS: CALCIUM 9.3 mg/dL (8.8-10.2); CREATININE 1.9 mg/dL (0.7-1.2); POTASSIUM 4.6 mmol/L (3.5-5.1)
[2020-01-21] MEDS ORDERED: NEOSTIGMINE ONE (12:23)
[2020-01-21] MEDS ORDERED: ROBINUL ONE (12:23)
[2020-01-21] MEDS ORDERED: DILAUDID ONE (12:47)
--- NOTE | 2020-01-21 13:37 | Diag Imaging Result Doc PS360 ---
EXAM: RETROGRADES 2 OR 3 FILMS 01/21/2020 HISTORY: GROSS HEMATURIA TECHNIQUE: 23 images, 5.9 mGy, 23 seconds fluoroscopy time. COMMENT: Contrast was injected in both ureters. There is no evidence of obstruction. The upper ureter on the left is not well demonstrated. Both sides appear to drain appropriately. IMPRESSION: No evidence of obstructing lesions. Electronically signed by Romie Sunshine 01/21/2020 1:34 PM
[2020-01-21] MEDS ORDERED: B & O 15A SUPP ONE (13:38)
[2020-01-21] MEDS ORDERED: APRESOLINE ONE (14:03)
[2020-01-21] MEDS ORDERED: D5 1/2 NS 1,000 ML ONE (14:22)
--- NOTE | 2020-01-21 15:06 | OPERATIVE NOTE ---
PROCEDURE DATE: 01/21/2020 PREOPERATIVE DIAGNOSES: 1. Gross hematuria. 2. Benign prostatic hypertrophy 3. Urinary retention. POSTOPERATIVE DIAGNOSES: 1. Gross hematuria. 2. Benign prostatic hypertrophy. 3. Urinary retention. 4. Clot retention. PROCEDURES PERFORMED: 1. Cystoscopy with bilateral retrograde pyelograms. 2. Clot evacuation. 3. Transurethral vaporization of prostate. SURGEON: Keo Stanley MD. MANAGER TRANSFUSION: None. COMPLICATIONS: None. BLOOD LOSS: 20 mL. DRAINS: A 22[place], three-way catheter. SPECIMEN REMOVED: Bladder clots. ANESTHESIA: LMA. INDICATIONS FOR PROCEDURE: Mr. Edge is an 84-year-old who presented to Urology Clinic due to prolonged history of gross hematuria. The patient has been having blood in his urine for approximately two weeks now. Initially, patient was treated for possible urinary tract infection, however patient continued to have bleeding and presented to the emergency room last week and was admitted to the hospital for observation. His urine culture was negative and his urine cleared. He was discharged home with clear yellow urine per report. However, over the weekend, patient's hematuria returned and he presented to the Urology office on Monday with gross hematuria through his catheter. The catheter had been pulled out extensively and was likely in the prostatic urethra. This was exchanged. The patient continued to have blood in his urine. In talking with his caregivers, I recommended cystoscopy and bilateral retrograde pyelograms, clot evacuation and possible transurethral procedure regarding his prostate. Reviewed risks including bleeding, infection, damage to surrounding structures, urinary incontinence, as well as persistent hematuria. After a thorough discussion of risks, benefits, alternatives, the family members elected to proceed. DESCRIPTION OF PROCEDURE: After informed consent was obtained, the patient was brought to the operating room and placed on the operating table in supine position. The patient received preoperative antibiotics and underwent LMA placement. He was positioned into a dorsal lithotomy position and was prepped and draped in the usual sterile fashion. A preoperative time-out was then performed with all parties in agreement, including anesthesia, surgical, and nursing staff. At which point I inserted a 21[place] cystourethroscope through the urethra into the bladder. Once inside the urethra, the patient had a normal urethra. No significant stricture disease or papillary lesions. Once inside the prostate, patient's prostate showed some obstruction, most prominent from the right lateral lobe with a small median lobe. Once inside the bladder, a large amount of clot was seen. Using the [place] syringe this was able to be irrigated out and retrieved. Urine cleared slightly. The entirety of the bladder was inspected with both the 30 and 70 degree lens with multiple diverticulum that were small as well as cellules and grade 2 trabeculations throughout. Once the entirety of the bladder was inspected, there was no obvious papillary lesions or concerning lesions. Several erythematous areas were seen, likely related to scope trauma and catheter trauma, but no significant tumors were visualized, at which point bilateral ureteral orifices were visualized. The left was slightly more inferior in the bladder. This was then cannulated using a open-ended catheter and Omnipaque was injected which outlined a tortuous ureter distally which was without hydronephrosis. Using a Zipwire through the open-ended catheter I was able to advance the open-ended catheter into the mid ureter and retrograde was then performed which showed a normal collecting system with no evidence of hydronephrosis or obstruction. No filling defects were seen. A pull-down retrograde was completed, which showed no obvious filling defects within the ureter itself. Good drainage from the collecting system was seen on postdrainage film. A similar procedure was performed on the right side which showed a slightly more hydronephrotic collecting system with no evidence of obstruction or filling defects and good drainage seen on postdrainage film. The patient's bladder was irrigated out multiple times. Small amount of bleeding was seen from the bladder neck. Uncertain what led to his significant hematuria, likely related to his prostate as he continued to have some bleeding present. A cystoscope was removed and the resectoscope element was then advanced and then using a plasma button, I was able to vaporize the prostate starting initially posterior at the 6 o'clock position and resected the small median lobe carried this just proximal to the verumontanum. Then moving laterally at the bladder neck and then on the left lateral lobe and resected the left lateral love. This showed minimal obstruction. Once down to the capsule, concentrated our effort on the right lateral lobe and was able to carry this down near the surgical capsule itself. Good cauterization was seen throughout the procedure with no significant bleeding seen at the end the procedure. The patient's bladder was cycled multiple times with no active bleeding seen. The patient had a small anterior lobe of the prostate that was vaporized. Was able to cauterize at the bladder neck. Both ureteral orifices were seen far away from the bladder neck itself. Once hemostasis was obtained the patient's bladder was cycled again with no active bleeding seen. Bladder was left full and a good stream was visualized and a 22[place] three-way catheter was advanced through the urethra and into the bladder, inflated with 30 mL of sterile water and placed to gravity drainage on slight traction. Continuous bladder irrigation was then started and remained light pink. Hand irrigated with no return of clots. The patient was then awoken and was taken to recovery in stable condition. DISPOSITION: Will admit to the hospital overnight while on continuous bladder irrigation. cc: Keo Stanley MD MTDD
[2020-01-21] MEDS: D5 1/2 NS 1,000 ML IV SCH ×2 (15:10→23:23)
[2020-01-21] MEDS ORDERED: MORPHINE IV PRN (15:21)
[2020-01-21] MEDS ORDERED: LABETALOL IV PRN (15:30)
[2020-01-21] MEDS ORDERED: NORCO-5 PO PRN (15:30)
[2020-01-21] MEDS ORDERED: ZOFRAN IV PRN (15:30)
[2020-01-21] MEDS ORDERED: IMODIUM PO PRN (15:55)
[2020-01-21] MEDS ORDERED: TYLENOL PO PRN (15:55)
[2020-01-21] MEDS ORDERED: KENALOG TOP PRN (15:55)
[2020-01-21] MEDS ORDERED: CLARITIN PO PRN (15:55)
[2020-01-21] MEDS ORDERED: NIZORAL 2% SHAMPOO TOP SCH (16:00)
[2020-01-21] MEDS ORDERED: MUCINEX CHILDREN'S COUGH PO PRN (16:06)
[2020-01-21] MEDS ORDERED: NEOSPORIN OINTMENT PACKET TOP PRN (16:07)
[2020-01-21] MEDS: BROVANA NEB INH SCH (19:46)
[2020-01-21] MEDS ORDERED: RISPERDAL PO SCH (21:00)
[2020-01-21] MEDS ORDERED: FLOMAX PO SCH (21:00)
[2020-01-21] MEDS ORDERED: TRICOR PO SCH (21:00)
[2020-01-21] MEDS ORDERED: DESYREL PO SCH (21:00)
[2020-01-21] MEDS ORDERED: MELATONIN PO SCH (21:00)
[2020-01-21] MEDS ORDERED: COGENTIN PO SCH (21:00)
[2020-01-21] MEDS: KEFZOL 1 GM/D5W 1 GM/50 ML IVPB IV SCH (22:51)
[2020-01-21] MEDS: COLACE PO SCH (22:51)
[2020-01-21] MEDS: OSCAL 500 PO SCH (23:08)
[2020-01-22] MEDS: KEFZOL 1 GM/D5W 1 GM/50 ML IVPB IV SCH (04:59)
[2020-01-22] MEDS: D5 1/2 NS 1,000 ML IV SCH (05:00)
[2020-01-22 06:38] LABS: HEMATOCRIT 22.1 % (42.0-52.0); HEMOGLOBIN 6.9 g/dL (14.0-18.0); MCH 32.7 PG (27-31); MCHC 31.2 g/dL (33-37); MCV 104.7 FL (81-99); MPV 8.6 FL (7.4-10.4); RBC 2.11 XMIL (4.7-6.1); RDW 12.2 % (11.5-14.5); WBC 8.46 X1000 (4.8-10.8)
[2020-01-22] MEDS ORDERED: SYNTHROID PO SCH (07:00)
[2020-01-22 07:23] LABS: POTASSIUM 4.4 mmol/L (3.5-5.1)
[2020-01-22] MEDS: BROVANA NEB INH SCH (07:32)
[2020-01-22] MEDS ORDERED: BROVANA NEB ONE (07:40)
[2020-01-22 08:45] VITALS: BP 133/65
--- NOTE | 2020-01-22 08:46 | PROGRESS NOTE ---
DATE: 01/22/2020 SUBJECTIVE: Postoperative day 1 from cystoscopy with bilateral retrograde pyelograms, clot evacuation, and transurethral vaporization of prostate. The patient has done well overnight. Vital signs have been stable. His catheter has been draining and was very light pink this morning. I irrigated his catheter with no clots returning. The catheter was removed. He was able to tolerate p.o. intake. OBJECTIVE: Vital Signs: Temperature 97.5 degrees, heart rate 70, blood pressure 120/78, oxygen saturation 99% on nasal cannula at 2 L. General: No acute distress. Resting comfortably in bed. Alert and oriented x3. Respiratory: Good respiratory effort without audible wheezing or rales. The patient remains on home oxygen. Abdomen: Soft, nontender. : No suprapubic tenderness. No CVA tenderness. Urethral catheter in place, draining light pink urine with irrigation off. No evidence of clots. Musculoskeletal: Moving all extremities. Labs: White blood cell count 8.4, hemoglobin 6.9, hematocrit 22.1, platelets 305,000. Sodium 138, potassium 4.4, chloride 101, bicarb 28, BUN 25, creatinine 2.0, glucose 127. ASSESSMENT AND PLAN: Mr. Edge is an 84-year-old with a history of mental retardation, hypertension, benign prostatic hypertrophy, urinary retention, who presented in consultation regarding clot retention and significant hematuria. He was taken to the operating room yesterday for a cystoscopy, clot evacuation, bilateral retrograde pyelograms. The patient had a small amount of bleeding from his prostate but no other etiologies for his hematuria were seen. I irrigated all the clots out. Then I performed a transurethral vaporization of prostate due to the size of his prostate being relatively small. Good hemostasis was obtained. The patient has done well overnight. The patient's hemoglobin and hematocrit are 6.9 and 22 this morning. The patient is without tachycardia or hypotension. Overall, the patient seems to be doing well. Will plan to hold off on transfusion due to stability of his vital signs and minimal hematuria. Creatinine is stable at 2.0. I removed his catheter this morning. We will perform postvoid residual to ensure the patient is able to empty. We will continue with home medications. Would send home with antibiotics postoperatively. Would plan for him to return to clinic in 1 week for a postvoid residual. Would transition him back to intermittent catheterization starting later this afternoon at his facility. If the patient continues to have issues with hypertension, may have to consider chronic indwelling catheter versus increased frequency of catheterizations. We will continue to monitor while inpatient. Please call with questions or concerns. cc: Keo Stanley MD MTDBunny
[2020-01-22] MEDS ORDERED: ALBUTEROL NEB INH SCH (09:00)
[2020-01-22] MEDS ORDERED: TOPROL XL PO SCH (09:00)
[2020-01-22] MEDS ORDERED: ICAR-C PO SCH (09:00)
[2020-01-22] MEDS ORDERED: COLACE PO SCH (09:00)
[2020-01-22] MEDS ORDERED: LASIX PO SCH (09:00)
[2020-01-22] MEDS ORDERED: PEPCID PO SCH (09:00)
[2020-01-22] MEDS ORDERED: VITAMIN D PO SCH (09:00)
[2020-01-22] MEDS ORDERED: PROZAC PO SCH (09:00)
[2020-01-22] MEDS ORDERED: VITAMIN B-12 PO SCH (09:00)
[2020-01-22] MEDS ORDERED: LACTULOSE PO SCH (09:00)
[2020-01-22] MEDS: COLACE PO SCH (09:31)
[2020-01-22] MEDS: OSCAL 500 PO SCH (09:32)
== END 2020-01-22 10:58 | disposition home or self-care (01) ==
LOC: 4N 11:12 → OR 11:12
PROVIDERS: ATTEND Urology